=== PATIENT | male | born 1950 | race Caucasian/White ===

== ENCOUNTER → 2017-01-02 | Outpatient (CLI) | payer MEDICARE, OTHER ==
[~2017-01-02] MED LIST: ACETAMINOPHEN PO; AMIODARONE HCL100 MG PO; AMLODIPINE BESY10 MG PO; APRESOLINE PO; APRESOLINE10 M1 DOB; APRESOLINE10 MG DOB; ASPIRIN81 M1 PO; ATORVASTATIN CA10 MG; ATORVASTATIN CA10 MG PO; BAYER CHEWABLE81 MG PO; CADUET 10 MG/101 TAB PO; CARAFATE1 G PO; CIPRO PO; COLACE PO; COUMADIN PO; COUMADIN2.5 MG PO; COUMADIN5 MG PO; COUMADIN6 MG; COUMADIN7.5 MG PO; ECOTRIN81 M1 PO; ENOXAPARIN100 MG/1 M SQ; FERRO-TIME325 MG PO; FERROUS GL325 ( 36 ) PO; FERROUS SULFATE1 TAB PO; FLEXERIL PO; FLOMAX0.4 M1 DOB; FLOMAX0.4 M1 PO; FLORINEF ACETA0.1 MG PO; FLORINEF0.1 M1 PO; FLUDROCORTISONE PO; FUROSEMIDE40 MG; FUROSEMIDE40 MG PO; GLYCOLAX119 GM PO; HCTZ PO; HUMALOG MIX 75/10 ML SUBQ; HUMULIN 70/30 V10 ML IJ; HUMULIN 70100 UNITS/ SUBQ; HYDRALAZINE HCL10 MG PO; HYDROCHLOROTHIA25 MG PO; HYDROCODON-ACE1 EAC7 PO; IRON325 ( 651 PO; KCL PO; LIPITOR PO; LISINOPRIL PO; LISINOPRIL10 MG PO; LISINOPRIL2.5 MG PO; LO-DOSE ASPIRIN81 M1 PO; LORTAB 7.5-5001 TAB PO; LOVENOX SUBQ; LOVENOX40 MG/0.4 SUBQ; MAG-OX 400400 M1; MAG-OXIDE400 MG PO; MAGNESIUM400 MG PO; MAGOX 400400 MG PO; METFORMIN HCL500 M1 PO; METFORMIN PO; METOPROLOL ER SUCC PO; METOPROLOL SUCC25 MG; METOPROLOL SUCC25 MG PO; MILK OF MAGNESIA PO; NAPROXEN PO; NORVASC PO; NOVOLOG 70/30 SUBQ; NOVOLOG100 U/M1; NOVOLOG100 U/M1 SQ; NOVOLOG100 U/ML; PANTOPRAZOLE SO40 MG; PANTOPRAZOLE SO40 MG PO; PAXIL10 MG PO; SHOWER CHAIR; TOPROL XL PO; ULTRAM PO; VICODIN 5/500 T1 TAB PO; WARFARIN SODIUM10 M1 PO; ZESTRIL10 M1 PO
[2017-01-02 16:32] LABS: MEAN CELL VOLUME 98.6 FL (83-96); MEAN CORPUSCULAR HEMOGLOBIN 31.3 PG (28-34); MEAN CORPUSCULAR HGB CONC 31.7 g/dL (30-36); MEAN PLATELET VOLUME 9.5 FL (6.5-11.5); RED BLOOD COUNT 2.24 X10e (3.90-5.60); RED CELL DISTRIBUTION WIDTH 15.9 % (11.0-15.5); WHITE BLOOD COUNT 8.9 X10e3 (4.0-10.5)
== END | disposition home or self-care (01) ==
LOC: CLAB 16:06
PROVIDERS: Internal Medicine Nephrology
DX: N18.3 Chronic kidney disease, stage 3 (moderate) (principal); D63.1 Anemia in chronic kidney disease
CPT/HCPCS: 36415; 82728; 83540; 85027

== ENCOUNTER → 2017-02-27 | Outpatient (CLI) | payer MEDICARE, OTHER ==
[2017-02-27 11:14] LABS: URBCS1 AUWI 0-2 /[HPF] (0-2); URINE APPEARANCE CLEAR; URINE BACTERIA AUWI NEG (NEGATIVE); URINE BILIRUBIN NEG (NEG); URINE BLOOD NEG (NEG); URINE COLOR YELLOW; URINE GLUCOSE 100 MG/DL (NEG); URINE KETONE NEG (NEG); URINE LEUKOCYTE ESTERASE NEG (NEG); URINE NITRATE NEG (NEG); URINE PH 5.5 (5-8); URINE PROTEIN 1+ (NEG); URINE SPECIFIC GRAVITY 1.014 (1.003-1.035); URINE SQUAMOUS EPITHELIAL CELL NONE SEEN /[HPF]; UWBCS1 AUWI 0-2 (0-5)
[2017-02-27 11:15] LABS: URINE SOURCE CLEAN CATCH
[2017-02-27 11:18] LABS: BASOPHIL% 0.4 % (0-2.5); EOSINOPHIL# 0.2 X10e3 (0-0.7); EOSINOPHIL% 3.9 % (0.0-7.0); HEMATOCRIT 35.3 % (38.0-50.0); HEMOGLOBIN 11.1 gm/dL (13.0-16.0); LYMPHOCYTE# 1.7 X10e3 (1.0-3.5); LYMPHOCYTE% 28.4 % (17.0-45.0); MEAN CELL VOLUME 97.2 FL (83-96); MEAN CORPUSCULAR HEMOGLOBIN 30.5 PG (28-34); MEAN CORPUSCULAR HGB CONC 31.4 g/dL (30-36); MEAN PLATELET VOLUME 10.4 FL (6.5-11.5); MONOCYTE# 0.3 X10e3 (0-1.0); MONOCYTE% 5.8 % (3.0-12.0); NEUTROPHIL# 3.6 X10e3 (1.5-7.1); NEUTROPHIL% 61.5 % (40-75); PLATELET COUNT 161 X10e3 (140-420); RED BLOOD COUNT 3.63 X10e (3.90-5.60); RED CELL DISTRIBUTION WIDTH 15.8 % (11.0-15.5); WHITE BLOOD COUNT 5.8 X10e3 (4.0-10.5)
[2017-02-27 11:21] LABS: DIFF IND NO
[2017-02-27 12:19] LABS: BUN/CREATININE RATIO 15.92; CALCIUM SERUM 8.5 mg/dL (8.4-10.2); CREATININE SERUM 2.7 mg/dL (0.6-1.4); GLOM FILT RATE Estimated 23.2 mL/min (>60); POTASSIUM 4.7 mmol/L (3.5-5.1)
== END | disposition home or self-care (01) ==
LOC: CLAB 10:25
PROVIDERS: Internal Medicine Nephrology
DX: N18.3 Chronic kidney disease, stage 3 (moderate) (principal)
CPT/HCPCS: 36415; 80048; 81003; 85025